=== PATIENT | female | born 1980 ===

== ENCOUNTER 2016-08-29 18:58 | Emergency (ER) | payer MEDICAID ==
[2016-08-29] MEDS ORDERED: Amoxicillin-Clav 875-125 mg Tab PO STA (19:35)
[2016-08-29] MEDS ORDERED: Bacitracin 500 Units/gm Oint Foilpak UD TOP ONE (19:35)
--- NOTE | 2016-08-29 19:35 | C.PDOC ---
History Of Present Illness 36 year old female who presents to the ER after she was bitten on the right lower leg by her neighbors dog yesterday. Patient states the dog has not gotten it rabies vaccine in 3 years and reports she is not up to date with her tetanus vaccination. Denies any physical complaints at this time. Time Seen by Provider: 08/29/16 19:24 Chief Complaint (Nursing): Bite History Per: Patient History/Exam Limitations: no limitations Onset/Duration Of Symptoms: Days Current Symptoms Are (Timing): Still Present Location Of Injury: Right: Leg Recent travel outside of the [place]: No - Animal Bite Description Of The Attack: Unprovoked Attack Description Of The Animal: Neighbor's Pet Reports Animal Appears: Unknown Reports Animal's Immunization Status: Not Recently Immunized Past Medical History Reviewed: Historical Data, Nursing Documentation, Vital Signs Vital Signs: Last Vital Signs Temp 98.0 F 08/29/16 19:24 Pulse 68 08/29/16 19:24 Resp 20 08/29/16 19:24 BP 117/86 08/29/16 19:24 Pulse Ox 96 08/29/16 19:24 - Medical History PMH: No Chronic Diseases Surgical History: No Surg Hx Family History: States: Unknown Family Hx Review Of Systems Constitutional: Negative for: Fever, Chills Gastrointestinal: Negative for: Nausea, Vomiting Musculoskeletal: Negative for: Leg Pain Skin: Positive for: Other (Abrasion) Neurological: Negative for: Weakness, Numbness Physical Exam - Physical Exam Appears: Non-toxic, No Acute Distress Skin: Warm, Dry Head: Atraumatic, Normacephalic Eye(s): bilateral: Normal Inspection Neck: Normal ROM Extremity: Normal ROM, No Tenderness, Other (Superficial linear abrasion to right lower calf, no active bleeding.) Pulses: Left Dorsalis Pedis: Normal, Right Dorsalis Pedis: Normal Neurological/Psych: Oriented x3, Normal Speech Gait: Steady ED Course And Treatment O2 Sat by Pulse Oximetry: 96 (room air) Pulse Ox Interpretation: Normal Medical Decision Making Medical Decision Making: Impression: 36 year old female with dog bite Plan: * Augmentin * Bacitracin * Tetanus vaccine Patient with superficial wound to right leg from dog. Patient given Augmentin and tetanus. Bacitracin applied to wound. Discuss with patient Rabies vaccine series and the likelihood of rabies in domestic pet is rare. Patient agrees and will not receive Rabies vaccine at this time and will observe dog. Disposition Counseled Patient/Family Regarding: Diagnosis, Need For Followup, Rx Given - Disposition Referrals: Bia Johnson MD [Staff Provider] - Disposition: HOME/ ROUTINE Disposition Time: 19:50 Condition: STABLE Prescriptions: Amoxicillin/Clavulanate [Augmentin 875 MG-125 MG] 1 tab PO BID #10 tab Instructions: Animal Bite (ED) - POA Present On Arrival: None - Clinical Impression Clinical Impression: Animal bite wound - Scribe Statement The provider has reviewed the documentation as recorded by the Scriblydia Donnelly All medical record entries made by the Jamieiblydia were at my direction and personally dictated by me. I have reviewed the chart and agree that the record accurately reflects my personal performance of the history, physical exam, medical decision making, and the department course for this patient. I have also personally directed, reviewed, and agree with the discharge instructions and disposition.
[2016-08-29 19:41] VITALS: BP 117/86; PULSE 68; RESP 20; TEMP 98; O2SAT 96
== END 2016-08-29 20:04 | disposition home or self-care (01) ==
LOC: C.ER 18:58
DX: S80.871A Other superficial bite, right lower leg, initial encounter (principal); W54.0XXA Bitten by dog, initial encounter; Y92.89 Other specified places as the place of occurrence of the external cause

== ENCOUNTER 2017-04-27 09:36 | Emergency (ER) | payer MEDICAID ==
[2017-04-27 09:50] VITALS: BP 112/79; PULSE 75; RESP 18; TEMP 98.3; O2SAT 100
--- NOTE | 2017-04-27 10:32 | C.PDOC ---
History Of Present Illness L 2ND FINGER DOG BITE YESTERDAY 3 PM. DOG BELONGS TO PT'S BOYFRIEND, IS UTD W IMM. S/P TETANUS SHOT 2017. PS WAS UNABLE TO IMMEDIATELY WASH WOUND AFTER INJURY. INCR REDNESS AND SWELLING TODAY. NO FEVER, DC. EXAM NAD EXT L HAND +SWELLING 2ND FINGER NO GROSS DEFORM. AROM LIMITED DUE TO SWELL SKIN +PUNCTURE WOUNDS PROX AND DISTAL PHALANX L 2ND FINGER, WELL APPROXIMATED. NO FLUCTUANCE, DC. +ERYTHEMA PALMAR SIDE L 2ND FINGER. NO EXTENSION TO PALM, DORSAL NEURO INTACT Time Seen by Provider: 04/27/17 10:23 Chief Complaint (Nursing): Bite History Per: Patient History/Exam Limitations: no limitations Past Medical History Reviewed: Historical Data, Nursing Documentation, Vital Signs Vital Signs: Last Vital Signs Temp 98.3 F 04/27/17 09:49 Pulse 75 04/27/17 09:49 Resp 18 04/27/17 09:49 BP 112/79 04/27/17 09:49 Pulse Ox 100 04/27/17 11:02 Family History: States: No Known Family Hx - Social History Hx Alcohol Use: No Hx Substance Use: No - Immunization History Hx Tetanus Toxoid Vaccination: Yes (2017) Hx Influenza Vaccination: No Hx Pneumococcal Vaccination: No Review Of Systems Skin: Positive for: Other (Dog bite) Physical Exam - Physical Exam Appears: Non-toxic, No Acute Distress Skin: Warm, Dry, Other (+PUNCTURE WOUNDS PROX AND DISTAL PHALANX L 2ND FINGER, WELL APPROXIMATED. NO FLUCTUANCE, DC. +ERYTHEMA PALMAR SIDE L 2ND FINGER. NO EXTENSION TO PALM, DORSAL) Head: Atraumatic, Normacephalic Eye(s): bilateral: PERRL Nose: Normal Oral Mucosa: Moist Lips: Normal Appearing Neck: Normal ROM Extremity: No Deformity, Other ( L HAND +SWELLING 2ND FINGER NO GROSS DEFORM. AROM LIMITED DUE TO SWELL) Neurological/Psych: Oriented x3, Normal Speech ED Course And Treatment O2 Sat by Pulse Oximetry: 100 (RA) Pulse Ox Interpretation: Normal Disposition Counseled Patient/Family Regarding: Diagnosis, Need For Followup, Rx Given - Disposition Referrals: [facility] [Outside] [facility] [Outside] Disposition: HOME/ ROUTINE Disposition Time: 10:33 Condition: IMPROVED Prescriptions: Amoxicillin/Clavulanate [Augmentin 875 MG-125 MG] 1 tab PO BID #14 tab Instructions: Animal and Human Bites Forms: [email or web address] ([place]) - Clinical Impression Clinical Impression: Animal bite wound, Cellulitis - Scribe Statement The provider has reviewed the documentation as recorded by the Scribe (Randall Ribeiro) All medical record entries made by the Scribe were at my direction and personally dictated by me. I have reviewed the chart and agree that the record accurately reflects my personal performance of the history, physical exam, medical decision making, and the department course for this patient. I have also personally directed, reviewed, and agree with the discharge instructions and disposition.
[2017-04-27] MEDS ORDERED: Amoxicillin-Clav 875-125 mg Tab PO STA (10:34)
[2017-04-27] MEDS ORDERED: Amoxicillin-Clav 875-125 mg Tab PO ONE (10:42)
== END 2017-04-27 10:45 | disposition home or self-care (01) ==
LOC: C.ER 09:36
DX: S61.251A Open bite of left index finger without damage to nail, initial encounter (principal); W54.0XXA Bitten by dog, initial encounter; L03.012 Cellulitis of left finger